=== PATIENT | male | born 1940 | race Caucasian/White ===

== ENCOUNTER 2019-05-27 08:21 | Outpatient (CLI) | payer MEDICARE, OTHER ==
[2019-05-27] VITALS (7 sets, daily range): BP systolic 104–163; BP diastolic 66–84; PULSE 52–65
[~2019-05-27] VITALS: Ht 180.3 cm; Wt 81.3 kg
[~2019-05-27 08:21] MED LIST: ASPIRIN E.C. 8181 MG PO; FLOMAX 0.40.4 MG/CAP PO; LIPITOR20 MG PO; NEURONTIN300 MG/CAP PO; XALATAN EYE DROPS OU; ZESTORETIC 12.51 TAB PO
--- NOTE | 2019-05-27 09:20 | NUR ---
Pt to [facility] 10 per cart s/p LP. Pt reports H/A 10/07 which is the same as prior to LP. Pt resting well, at bedside.
[2019-05-27 09:46] LABS: GLUCOSE,CSF 58 mg/dL (40-70); TOTAL PROTEIN,CSF 44 mg/dL (15-45)
[2019-05-27 10:30] LABS: CSF APPEARANCE CLEAR; CSF COLOR COLORLESS; CSF POLYMORPHONUCLEAR 0 % (0-6); CSF RBC 2 /mm3 (0-0)
[2019-05-27 10:31] LABS: CSF MONONUCLEAR 100 % (70-100)
--- NOTE | 2019-05-27 10:55 | NUR ---
Pt has ambulated, voided and jacki PO intake s n/v.
--- NOTE | 2019-05-27 11:06 | NUR ---
Pt discharged per w/c by nurse with to [facility]. Pt gait steady. Pt denies dizziness.
[2019-05-29 15:58] LABS: ALBUMIN CSF 21.2 mg/dL (<=27.0)
[2019-05-29 16:04] LABS: IGG/ALBUMIN SERUM 0.2 (<=0.40)
[2019-05-29 16:46] LABS: CSF IGG/ALBUMIN 0.08 (<=0.21); CSF,IGG 1.7 mg/dL (<=8.1); CSF-IGG INDEX 0.4 (<=0.85)
== END 2019-05-27 12:05 | disposition home or self-care (01) ==
LOC: COL.RAD 08:21
PROVIDERS: Psychiatry & Neurology Neurology
DX: G44.221 Chronic tension-type headache, intractable (principal)

== ENCOUNTER → 2022-09-06 | Outpatient (CLI) | payer MEDICARE, OTHER | LOC: MHCPAIN 12:41 | DX: M54.16 Radiculopathy, lumbar region (principal); M48.062 Spinal stenosis, lumbar region with neurogenic claudication | CPT/HCPCS: G0463 ==